=== PATIENT | male | born 1965 | race American Indian/Alaskan Native ===

== ENCOUNTER 2017-01-18 16:34 | Inpatient (IN) | payer MEDICARE ==
[2017-01-18 17:06] LABS: Basophils % (Auto) 0.4 % (0.0-1.8); Eosinophils % (Auto) 2.5 % (0.0-4.3); Hematocrit 33.4 % (35.5-45.6); Hemoglobin 11.3 gm/dl (11.8-15.2); Mean Corpuscular HGB Conc 34 % (32-34); Mean Corpuscular Hemoglobin 30 pg (28-32); Mean Corpuscular Volume 89 fl (84-94); Platelet Count 206 K/mm3 (140-440); Red Blood Count 3.76 M/mm3 (3.65-5.03); White Blood Count 4.3 K/mm3 (4.5-11.0)
[2017-01-18 17:28] LABS: Albumin 4.9 g/dL (3.9-5); Albumin/Globulin Ratio 1.1 %; BUN/Creatinine Ratio 6.8; Bilirubin,Total 0.4 mg/dL (0.1-1.2); Calcium 9.4 mg/dL (8.4-10.2); Potassium 5.6 mmol/L (3.6-5.0); Total Protein 9.2 g/dL (6.3-8.2)
--- NOTE | 2017-01-18 19:06 | Emergency Department Report ---
HPI - General Chief Complaint: Medical Clearance Time Seen by Provider: 01/18/17 18:48 - HPI HPI: Room 32 The patient is a 51-year-old male presenting with chief complaint of missed dialysis. The patient states he was last dialyzed 01/12/2017 and has missed his other appointments secondary to court dates. The patient states he went to his dialysis clinic on 01/20/2017 and was told to come to the hospital. Patient denies any complaints stating that he feels fine. Patient denies shortness of breath or chest pain Location: [see above] Duration: [see above] Quality: Painless Severity: [see above] Modifying factors: [see above] Context: [see above] Mode of transportation: Unknown ED Past Medical Hx - Past Medical History Previous Medical History?: No Hx Renal Disease: Yes (end-stage renal disease) - Surgical History Additional Surgical History: Right chest Vas-Cath - Family History Family history: no significant - Social History Smoking Status: Never Smoker ED Review of Systems ROS: Stated complaint: DIALYSIS EVAL/MISSED DIALYSIS Other details as noted in HPI Comment: All other systems reviewed and negative Constitutional: denies: chills, fever Eyes: denies: eye pain, eye discharge, vision change ENT: denies: ear pain, throat pain Respiratory: denies: cough, shortness of breath, wheezing Cardiovascular: denies: chest pain, palpitations Endocrine: no symptoms reported Gastrointestinal: denies: abdominal pain, nausea, diarrhea Genitourinary: denies: urgency, dysuria Musculoskeletal: denies: back pain, joint swelling, arthralgia Skin: denies: rash, lesions Neurological: denies: headache, weakness, paresthesias Psychiatric: denies: anxiety, depression Hematological/Lymphatic: denies: easy bleeding, easy bruising Physical Exam - Physical Exam Vital Signs: Vital Signs 01/18/17 16:37 Temperature 97.8 F Pulse Rate 69 Respiratory 18 Rate Blood Pressure 201/124 O2 Sat by Pulse 100 Oximetry Physical Exam: GENERAL: The patient is well-developed well-nourished male sitting on stretcher not appearing to be in acute distress. [] HEENT: Normocephalic. Atraumatic. Extraocular motions are intact. Patient has moist mucous membranes. NECK: Supple. Trachea midline CHEST/LUNGS: Clear to auscultation. There is no respiratory distress noted. HEART/CARDIOVASCULAR: Regular. There is no tachycardia. There is no gallop rub or murmur. ABDOMEN: Abdomen is soft, nontender. Patient has normal bowel sounds. There is no abdominal distention. SKIN: There is no rash. There is no edema. There is no diaphoresis. NEURO: The patient is awake, alert, and oriented. The patient is cooperative. The patient has normal speech and gait. MUSCULOSKELETAL:There is no evidence of acute injury. ED Course Vital Signs 01/18/17 16:37 Temperature 97.8 F Pulse Rate 69 Respiratory 18 Rate Blood Pressure 201/124 O2 Sat by Pulse 100 Oximetry - Consultations Consultation #1: 01/18/17 19:[address] Porter- will arrange dialysis ED Medical Decision Making - Lab Data Result diagrams: 01/18/17 16:53 01/18/17 16:53 Laboratory Tests 01/18/17 01/18/17 16:53 16:53 WBC 4.3 L RBC 3.76 Hgb 11.3 L Hct 33.4 L MCV 89 MCH 30 MCHC 34 RDW 16.0 H Plt Count 206 Lymph % (Auto) 31.1 [place] % (Auto) 11.5 H Eos % (Auto) 2.5 Baso % (Auto) 0.4 Lymph # 1.3 [place] # 0.5 Eos # 0.1 Baso # 0.0 Seg Neutrophils % 54.5 Seg Neutrophils # 2.3 Sodium 142 Potassium 5.6 H Chloride 102.0 Carbon Dioxide 23 Anion Gap 23 BUN 66 H Creatinine 9.7 H Estimated GFR 6 BUN/Creatinine Ratio 6.80 Glucose 92 Calcium 9.4 Total Bilirubin 0.40 AST 8 ALT 6 L Alkaline Phosphatase 55 Total Protein 9.2 H Albumin 4.9 Albumin/Globulin Ratio 1.1 - Differential Diagnosis hyperkalemia, end-stage renal disease Critical care attestation.: If time is entered above; I have spent that time in minutes in the direct care of this critically ill patient, excluding procedure time. ED Disposition Clinical Impression: Hyperkalemia, End stage renal disease Disposition: OP ADMIT IP TO THIS HOSP Is pt being admited?: Yes Does the pt Need Aspirin: No Condition: Fair Referrals: PRIMARY CARE, [Primary Care Provider] - 3-5 Days Time of Disposition: 19:12 (hospitalist notified)
[2017-01-18] MEDS ORDERED: D50W (25GM) Syringe IV ONE (19:11)
--- NOTE | 2017-01-18 19:17 | Admit Criteria Form ---
Admission Criteria Documentation: RENAL FAILURE, CHRONIC Clinical Indications for Admission to Inpatient Care (Place 'X' for any and all applicable criteria): Admission is indicated for 1 or more of the following(1)(2)(3)(4)(5)(6)(7)(8) [X ]I. Inpatient admission required[B] rather than observation care (see Renal Failure, Chronic: Observation Care) because of 1 or more of the following: [ ]a. Hemodynamic instability [ ]b) Uremic symptoms (eg, pericarditis, pleural effusion, nausea, vomiting) too severe for, or not responsive (eg, for over 24 hours) to, emergency department or observation care dialysis or treatment regimen [ ]c) Significant respiratory findings (eg, pulmonary edema) that are severe (eg, Hypoxemia) or persist despite observation care treatment (eg, Tachypnea) [ ]d) Clinically significant metabolic abnormality (eg, acidosis) that is severe or persists despite observation care treatment [X ]e) Clinically significant electrolyte abnormality that requires inpatient care (eg, hyperkalemia with severe ECG findings)[C](14)(15) [ ]f) Hypertension requiring inpatient care (eg, SBP > 220 mm Hg or DBP > 120 mm Hg despite observation care treatment) [ ]g) Urgent treatment of renal failure (eg, dialysis) necessary on inpatient basis (eg, not feasible or appropriate in outpatient or observational care setting) as indicated by 1 or more of the followin) Vascular access not previously established or not useable (eg, treatment-resistant blockage) such that new temporary access is needed that is not appropriate for other than short-term inpatient usage (eg, femoral access until other access established or repaired) 2) Patient new to dialysis and timing of subsequent dialysis (eg, beyond that provided in observation care) unclear such that inpatient monitoring is necessary as patient may need repeat dialysis sooner than is routine [ ]h) Continuous intravenous infusion of anticoagulation, platelet inhibitor, vasoactive, or antiarrhythmic medication [ ] i) Pulmonary artery catheter monitoring [ ]j) Temporary pacemaker placement [ ]k) Emergent pericardiocentesis [ ]l) Other condition, treatment, or monitoring requiring inpatient admission [ ]II. Unexplained syncope [A] [ ]III. Recurrent seizures [ ]IV. Severe infections not treatable in outpatient setting (eg, peritonitis)(9 ) [ ]V. Cardiac arrhythmias of immediate concern [ ]. Encephalopathy (eg. altered mental status that is severe or persistent) [ ]VII.Bleeding abnormalities (eg, platelet dysfunction) with active (eg, gastrointestinal) bleeding Extended stay beyond goal length of stay may be needed for (3)(4)(35)(36): [ ]a) Continuing uremic complications [ ]b) Comorbidities or complications The original [facility] [employer] content created by [employer] has been revised. The portions of the content which have been revised are identified through the use of italic text or in bold, and [facility] has neither reviewed nor approved the modified material. All other unmodified content is copyright [facility] [employer]. Please see references footnoted in the original [facility] [employer] edition 2017 Admission Criteria Met: Yes
[2017-01-18] MEDS ORDERED: NACL 0.9% 100 ML IV PRN (19:19)
[2017-01-18] MEDS ORDERED: HEPARIN IV PRN (19:19)
[2017-01-18] MEDS ORDERED: HEPARIN 10,000 UNITS/10 ML IV PRN (19:19)
[2017-01-18] MEDS ORDERED: KIONEX PO ONE (20:00)
[2017-01-18] MEDS ORDERED: SODIUM BICARBONATE IV ONE (20:00)
[2017-01-18] MEDS ORDERED: CALCIUM GLUCONATE 1,000 MG in NACL 0.9% 100 ML IV ONE (20:00)
[2017-01-18] MEDS ORDERED: KIONEX ONE (20:42)
[2017-01-18] MEDS ORDERED: CATAPRES ONE (21:01)
[2017-01-18] MEDS ORDERED: DILAUDID IV PRN (23:17)
[2017-01-18] MEDS ORDERED: PERCOCET 5/325 PO PRN (23:17)
[2017-01-18] MEDS ORDERED: MILK OF MAGNESIA PO PRN (23:17)
[2017-01-18] MEDS ORDERED: ZOFRAN IV PRN (23:17)
[2017-01-18] MEDS ORDERED: DULCOLAX PR PRN (23:17)
[2017-01-18] MEDS ORDERED: TYLENOL PO PRN (23:17)
--- NOTE | 2017-01-18 23:17 | History and Physical Report ---
History of Present Illness Date of examination: 01/18/17 Date of admission: 01/18/17 19:07 Chief complaint: Missed Dialysis SOB History of present illness: HPI The patient is a 51-year-old male presenting with chief complaint of missed dialysis. The patient states he was last dialyzed 01/12/2017 and has missed his other appointments secondary to court dates. The patient states he went to his dialysis clinic on 01/18/2017 and was told to come to the hospital. Patient denies any complaints stating that he feels fine. Patient denies shortness of breath or chest pain Past Medical History Previous Medical History?: No Hx Renal Disease: Yes (end-stage renal disease) Surgical History Additional Surgical History: Right chest Vas-Cath Family History Family history: no significant Social History Smoking Status: Never Smoker Review of Systems ROS: Stated complaint: DIALYSIS EVAL/MISSED DIALYSIS Other details as noted in HPI Comment: All other systems reviewed and negative Constitutional: denies: chills, fever Eyes: denies: eye pain, eye discharge, vision change ENT: denies: ear pain, throat pain Respiratory: denies: cough, shortness of breath, wheezing Cardiovascular: denies: chest pain, palpitations Endocrine: no symptoms reported Gastrointestinal: denies: abdominal pain, nausea, diarrhea Genitourinary: denies: urgency, dysuria Musculoskeletal: denies: back pain, joint swelling, arthralgia Skin: denies: rash, lesions Neurological: denies: headache, weakness, paresthesias Psychiatric: denies: anxiety, depression Hematological/Lymphatic: denies: easy bleeding, easy bruising Medications and Allergies Allergies Allergy/AdvReac Type Severity Reaction Status Date / Time No Known Allergies Allergy Unverified 01/18/17 16:49 Home Medications Medication Instructions Recorded Confirmed Last Taken Type Carvedilol [Coreg] 25 mg PO BID 01/18/17 01/18/17 Unknown History amLODIPine [Norvasc] 10 mg PO QDAY 01/18/17 01/18/17 Unknown History Active Meds: Active Medications Heparin Sodium (Porcine) (Heparin) 5,000 unit IV COOKIE PRN PRN Reason: hemodialysis Heparin Sodium (Porcine) (Heparin 10,000 Units/10 Ml) 2,000 unit IV COOKIE PRN PRN Reason: hemodialysis Sodium Chloride (Nacl 0.9%) 100 mls @ 999 mls/hr IV COOKIE PRN PRN Reason: Hypotension Exam - Constitutional Vitals: Temp Pulse Resp BP Pulse Ox 97.4 F L 70 18 191/112 99 01/18/17 21:29 01/18/17 21:29 01/18/17 21:29 01/18/17 21:29 01/18/17 21:29 General appearance: Present: no acute distress, mild distress, well-nourished - EENT Eyes: Present: PERRL ENT: hearing intact, clear oral mucosa - Neck Neck: Present: supple, normal ROM - Respiratory Respiratory effort: normal Respiratory: bilateral: CTA - Cardiovascular Heart rate: 80 Rhythm: regular Heart Sounds: Present: S1 & S2. Absent: rub, click - Extremities Extremities: no ischemia, pulses intact, pulses symmetrical, No edema Peripheral Pulses: within normal limits - Abdominal General gastrointestinal: Present: soft, non-tender, non-distended, normal bowel sounds Male genitourinary: Present: normal - Rectal Rectal Exam: deferred - Integumentary Integumentary: Present: clear, warm, dry - Musculoskeletal Musculoskeletal: gait normal, strength equal bilaterally - Psychiatric Psychiatric: appropriate mood/affect, intact judgment & insight - Neurologic Neurologic: CNII-XII intact, moves all extremities - Allied Health Allied health notes reviewed: nursing, case management Results - Labs CBC & Chem 7: 01/19/17 02:14 01/19/17 02:14 Labs: Laboratory Last Values WBC 4.3 K/mm3 (4.5-11.0) L 01/18/17 16:53 RBC 3.76 M/mm3 (3.65-5.03) 01/18/17 16:53 Hgb 11.3 gm/dl (11.8-15.2) L 01/18/17 16:53 Hct 33.4 % (35.5-45.6) L 01/18/17 16:53 MCV 89 fl (84-94) 01/18/17 16:53 MCH 30 pg (28-32) 01/18/17 16:53 MCHC 34 % (32-34) 01/18/17 16:53 RDW 16.0 % (13.2-15.2) H 01/18/17 16:53 Plt Count 206 K/mm3 (140-440) 01/18/17 16:53 Lymph % (Auto) 31.1 % (13.4-35.0) 01/18/17 16:53 [place] % (Auto) 11.5 % (0.0-7.3) H 01/18/17 16:53 Eos % (Auto) 2.5 % (0.0-4.3) 01/18/17 16:53 Baso % (Auto) 0.4 % (0.0-1.8) 01/18/17 16:53 Lymph # 1.3 K/mm3 (1.2-5.4) 01/18/17 16:53 [place] # 0.5 K/mm3 (0.0-0.8) 01/18/17 16:53 Eos # 0.1 K/mm3 (0.0-0.4) 01/18/17 16:53 Baso # 0.0 K/mm3 (0.0-0.1) 01/18/17 16:53 Seg Neutrophils % 54.5 % (40.0-70.0) 01/18/17 16:53 Seg Neutrophils # 2.3 K/mm3 (1.8-7.7) 01/18/17 16:53 Sodium 142 mmol/L (137-145) 01/18/17 16:53 Potassium 5.6 mmol/L (3.6-5.0) H 01/18/17 16:53 Chloride 102.0 mmol/L (98-107) 01/18/17 16:53 Carbon Dioxide 23 mmol/L (22-30) 01/18/17 16:53 Anion Gap 23 mmol/L 01/18/17 16:53 BUN 66 mg/dL (9-20) H 01/18/17 16:53 Creatinine 9.7 mg/dL (0.8-1.5) H 01/18/17 16:53 Estimated GFR 6 ml/min 01/18/17 16:53 BUN/Creatinine Ratio 6.80 % 01/18/17 16:53 Glucose 92 mg/dL (75-100) 01/18/17 16:53 Calcium 9.4 mg/dL (8.4-10.2) 01/18/17 16:53 Total Bilirubin 0.40 mg/dL (0.1-1.2) 01/18/17 16:53 AST 8 units/L (5-40) 01/18/17 16:53 ALT 6 units/L (7-56) L 01/18/17 16:53 Alkaline Phosphatase 55 units/L (35-129) 01/18/17 16:53 Total Protein 9.2 g/dL (6.3-8.2) H 01/18/17 16:53 Albumin 4.9 g/dL (3.9-5) 01/18/17 16:53 Albumin/Globulin Ratio 1.1 % 01/18/17 16:53 Short CBC 01/18/17 01/19/17 Range/Units 16:53 02:14 WBC 4.3 L 7.1 (4.5-11.0) K/mm3 Hgb 11.3 L 12.0 (11.8-15.2) gm/dl Hct 33.4 L 36.2 (35.5-45.6) % Plt Count 206 204 (140-440) K/mm3 BMP 01/18/17 01/19/17 16:53 02:14 Sodium 142 142 Potassium 5.6 H 4.2 D Chloride 102.0 99.3 Carbon Dioxide 23 18 L BUN 66 H 67 H Creatinine 9.7 H 9.0 H Glucose 92 98 Calcium 9.4 9.2 Liver Function 01/18/17 01/19/17 Range/Units 16:53 02:14 Total Bilirubin 0.40 0.40 (0.1-1.2) mg/dL AST 8 10 (5-40) units/L ALT 6 L 9 (7-56) units/L Alkaline Phosphatase 55 58 (35-129) units/L Albumin 4.9 4.8 (3.9-5) g/dL - Imaging and Cardiology EKG: report reviewed (NSR) Assessment and Plan Advance Directives: Yes VTE prophylaxis?: Chemical, Not ordered (Full code) Plan of care discussed with patient/family: Yes - Patient Problems (1) Hyperkalemia Current Visit: Yes Status: Acute Plan to address problem: Was given Insulin/D50w Calcium chloride and Na Hco3 in ED Also due for HD Cause missed HD (2) End stage renal disease Current Visit: Yes Status: Chronic Plan to address problem: Cont HD (3) Volume overload Current Visit: Yes Status: Acute Qualifiers: Hypervolemia type: H Plan to address problem: Sec to missed HD (4) HTN (hypertension) Current Visit: Yes Status: Chronic Qualifiers: Hypertension type: essential hypertension Qualified Code(s): I10 - Essential (primary) hypertension Plan to address problem: Cont Catapress (5) DVT prophylaxis Current Visit: Yes Status: Acute Plan to address problem: on Heparin
[2017-01-18] MEDS ORDERED: CATAPRES-TTS PATCH TD SCH (23:51)
[2017-01-19] MEDS: APRESOLINE IV PRN ×2 (00:14→12:36)
[2017-01-19 02:33] LABS: Basophils % (Auto) 0.9 % (0.0-1.8); Eosinophils % (Auto) 1.3 % (0.0-4.3); Hematocrit 36.2 % (35.5-45.6); Mean Corpuscular HGB Conc 33 % (32-34); Mean Corpuscular Hemoglobin 30 pg (28-32); Mean Corpuscular Volume 89 fl (84-94); Platelet Count 204 K/mm3 (140-440); Red Blood Count 4.07 M/mm3 (3.65-5.03); Red Cell Distribution Width 16.3 % (13.2-15.2); White Blood Count 7.1 K/mm3 (4.5-11.0)
[2017-01-19 02:45] LABS: Albumin 4.8 g/dL (3.9-5); Albumin/Globulin Ratio 1.2 %; BUN/Creatinine Ratio 7.44; Bilirubin,Total 0.4 mg/dL (0.1-1.2); Calcium 9.2 mg/dL (8.4-10.2); Chloride 99.3 mmol/L (98-107); Potassium 4.2 mmol/L (3.6-5.0); Total Protein 8.7 g/dL (6.3-8.2)
--- NOTE | 2017-01-19 10:24 | Consultation ---
History of Present Illness - Reason for Consult Consult date: 01/19/17 Dialysis access - History of Present Illness Patient with a history of end-stage renal disease on hemodialysis through a right chest wall tunneled hemodialysis catheter. Patient evaluated during hemodialysis. His catheter appears to be functioning normally. Discussion with the patient regarding long-term dialysis access. Patient has an outpatient vascular surgery that he sees in [place] and is scheduled for fistula creation on the of this month. Past History Past Medical History: dialysis, ESRD Past Surgical History: Other (right chest wall tunneled hemodialysis catheter) Social history: no significant social history Family history: no significant family history Medications and Allergies Allergies Allergy/AdvReac Type Severity Reaction Status Date / Time No Known Allergies Allergy Unverified 01/18/17 16:49 Home Medications Medication Instructions Recorded Confirmed Last Taken Type Carvedilol [Coreg] 25 mg PO BID 01/18/17 01/18/17 Unknown History amLODIPine [Norvasc] 10 mg PO QDAY 01/18/17 01/18/17 Unknown History Active Meds: Active Medications Acetaminophen (Tylenol) 650 mg PO Q4H PRN PRN Reason: Pain MILD(1-3)/Fever >100.5/[place] Amlodipine Besylate (Norvasc) 10 mg PO QDAY JUANY Bisacodyl (Dulcolax) 10 mg [place] QDAY PRN PRN Reason: Constipation unrelieved by MOM Carvedilol (Coreg) 25 mg PO BID [facility] Clonidine HCl (Catapres-Tts Patch) 0.2 mg TD Th JUANY Last Admin: 01/19/17 00:44 Dose: 0.2 mg Heparin Sodium (Porcine) (Heparin) 5,000 unit IV COOKIE PRN PRN Reason: hemodialysis Heparin Sodium (Porcine) (Heparin 10,000 Units/10 Ml) 2,000 unit IV COOKIE PRN PRN Reason: hemodialysis Hydralazine HCl (Apresoline) 10 mg IV Q6HR PRN PRN Reason: Hypertension Last Admin: 01/19/17 00:14 Dose: 10 mg Hydromorphone HCl (Dilaudid) 0.5 mg IV Q3H PRN PRN Reason: Pain , Severe (7-10) Sodium Chloride (Nacl 0.9%) 100 mls @ 999 mls/hr IV COOKIE PRN PRN Reason: Hypotension Magnesium Hydroxide (Milk Of Magnesia) 30 ml PO Q4H PRN PRN Reason: Constipation Ondansetron HCl (Zofran) 4 mg IV Q8H PRN PRN Reason: N/V unrelieved by Reglan Oxycodone/Acetaminophen (Percocet 5/325) 1 tab PO Q6H PRN PRN Reason: Pain, Moderate (4-6) Review of Systems All systems: negative Exam - Constitutional Vitals: Temp Pulse Resp BP Pulse Ox 98.7 F 78 20 165/97 100 01/19/17 08:59 01/19/17 08:59 01/19/17 06:38 01/19/17 08:59 01/19/17 08:59 General appearance: Present: no acute distress - EENT Eyes: Present: PERRL, EOM intact ENT: hearing intact - Neck Neck: Present: supple, normal ROM - Respiratory Respiratory effort: normal - Cardiovascular Rhythm: regular - Extremities Extremities: Full ROM - Abdominal General gastrointestinal: Present: deferred Male genitourinary: Present: deferred - Rectal Rectal Exam: deferred - Integumentary Integumentary: Present: clear - Psychiatric Psychiatric: appropriate mood/affect, cooperative Results - Labs CBC & Chem 7: 01/19/17 02:14 01/19/17 02:14 Labs: Abnormal lab results 01/19/17 01/19/17 Range/Units 02:14 02:14 RDW 16.3 H (13.2-15.2) % Lymph # 1.1 L (1.2-5.4) K/mm3 Seg Neutrophils % 75.6 H (40.0-70.0) % Carbon Dioxide 18 L (22-30) mmol/L BUN 67 H (9-20) mg/dL Creatinine 9.0 H (0.8-1.5) mg/dL Total Protein 8.7 H (6.3-8.2) g/dL Assessment and Plan Patient has artery been scheduled for fistula creation at [place] on January 30. We'll defer to his outpatient vascular surgeons.
[2017-01-19] MEDS ORDERED: NACL 0.9 (PRIMING MACHINE ONLY DIALYSIS) MC ONE (10:58)
[2017-01-19] MEDS ORDERED: COREG PO SCH (11:00)
[2017-01-19] MEDS ORDERED: NORVASC PO SCH (11:00)
--- NOTE | 2017-01-19 13:41 | Consultation ---
History of Present Illness - Reason for Consult Consult date: 01/19/17 end stage renal disease Requesting physician: GUZMAN SOLIS - History of Present Illness This is a 51yo AAM with h/o hypertension, ESRD on HD on MWF at [facility], who presented to [facility] ER after missed [address]. Pt was last dialyzed on 01/12/2017 and was sent to ER from outpatient HD center for further evaluation. Labs showed mild hyperkalemia of 5.6 along with metabolic acidosis. Patient otherwise denied fever, chills, nausea, vomiting, shortness of breath, chest pain, palpitations, abd pain, diarrhea, constipation. Pt was admitted for HD treatments Past History Past Medical History: dialysis, ESRD Past Surgical History: Other (right chest wall tunneled hemodialysis catheter) Social history: no significant social history Family history: no significant family history Medications and Allergies Allergies Allergy/AdvReac Type Severity Reaction Status Date / Time No Known Allergies Allergy Unverified 01/18/17 16:49 Home Medications Medication Instructions Recorded Confirmed Last Taken Type Carvedilol [Coreg] 25 mg PO BID 01/18/17 01/18/17 Unknown History amLODIPine [Norvasc] 10 mg PO QDAY 01/18/17 01/18/17 Unknown History Active Meds: Active Medications Acetaminophen (Tylenol) 650 mg PO Q4H PRN PRN Reason: Pain MILD(1-3)/Fever >100.5/[place] Amlodipine Besylate (Norvasc) 10 mg PO QDAY JUANY Bisacodyl (Dulcolax) 10 mg [place] QDAY PRN PRN Reason: Constipation unrelieved by MOM Carvedilol (Coreg) 25 mg PO BID JUANY Clonidine HCl (Catapres-Tts Patch) 0.2 mg TD Th JUANY Last Admin: 01/19/17 00:44 Dose: 0.2 mg Heparin Sodium (Porcine) (Heparin) 5,000 unit IV COOKIE PRN PRN Reason: hemodialysis Heparin Sodium (Porcine) (Heparin 10,000 Units/10 Ml) 2,000 unit IV COOKIE PRN PRN Reason: hemodialysis Last Admin: 01/19/17 10:57 Dose: 2,000 unit Hydralazine HCl (Apresoline) 10 mg IV Q6HR PRN PRN Reason: Hypertension Last Admin: 01/19/17 12:36 Dose: 10 mg Hydromorphone HCl (Dilaudid) 0.5 mg IV Q3H PRN PRN Reason: Pain , Severe (7-10) Sodium Chloride (Nacl 0.9%) 100 mls @ 999 mls/hr IV COOKIE PRN PRN Reason: Hypotension Magnesium Hydroxide (Milk Of Magnesia) 30 ml PO Q4H PRN PRN Reason: Constipation Ondansetron HCl (Zofran) 4 mg IV Q8H PRN PRN Reason: N/V unrelieved by Reglan Oxycodone/Acetaminophen (Percocet 5/325) 1 tab PO Q6H PRN PRN Reason: Pain, Moderate (4-6) Review of Systems All systems: negative Exam - Vital Signs Vital signs: Vital Signs Temp Pulse Resp BP Pulse Ox 97.8 F 69 18 201/124 100 01/18/17 16:37 01/18/17 16:37 01/18/17 16:37 01/18/17 16:37 01/18/17 16:37 - General Appearance General appearance: well-developed, well-nourished, appears stated age EENT: ATNC, PERRL, mucous membranes moist Neck: Present: neck supple Respiratory: Clear to Ascultation Heart: regular, S1S2 Gastrointestinal: Present: normoactive bowel sounds Integumentary: no rash, other (noedema ) Neurologic: no focal deficit, alert and oriented x3, strength 5/5, CN 3-12 intact Psychiatric: mood/affect appropriate, cooperative Results - Lab Results 01/19/17 02:14 01/19/17 02:14 Most recent lab results Calcium 9.2 mg/dL (8.4-10.2) 01/19/17 02:14 Assessment and Plan - Patient Problems (1) End stage renal disease Current Visit: Yes Status: Chronic Plan to address problem: Arranged HD today, to continue on MWF schedule. stable for discharge after HD today, to resume outpatient HD at [facility] (2) Hyperkalemia Current Visit: Yes Status: Acute Plan to address problem: 2k bath with HD. cont 2g K renal diet (3) HTN (hypertension) Current Visit: Yes Status: Chronic Qualifiers: Hypertension type: essential hypertension Qualified Code(s): I10 - Essential (primary) hypertension Plan to address problem: BP remains uncontrolled. will target UF 3-4kg as tolerated for further volume/ BP control. resume home BP meds incl. amlodipine, carvedilol. Clonidine patch 0.2mg was added. will monitor BP on current regimen
--- NOTE | 2017-01-19 13:54 | Discharge Summary ---
Providers - Providers Date of Admission: 01/18/17 19:07 Date of discharge: 01/19/17 Attending physician: ALANNAH QUISPE 01/18/17 Consult to Case Management [CONS] Routine Services Needed at Discharge: [employer] Notified:: case therapist 01/18/17 23:20 Consult to Physician [CONS] Routine Consulting Provider: RD RIZVI Reason For Exam: AV graft eval Place consult to:: vascular Notified:: office Phone number called:: [phone] Was contact made?: Yes If yes, spoke with:: jimmy Time called:: 10:01 Primary care physician: MADHURI PATE MD Hospitalization Condition: Fair Disposition: - TO HOME OR SELFCARE - Discharge Diagnoses (1) Hyperkalemia Status: Acute (2) Volume overload Status: Acute Qualifiers: Hypervolemia type: H (3) End stage renal disease Status: Chronic (4) HTN (hypertension) Status: Chronic Qualifiers: Hypertension type: essential hypertension Qualified Code(s): I10 - Essential (primary) hypertension Exam - Constitutional Vitals: Temp Pulse Resp BP Pulse Ox 98.5 F 79 18 169/104 100 01/19/17 10:00 01/19/17 13:00 01/19/17 10:00 01/19/17 13:00 01/19/17 08:59 Plan Activity: no restrictions Diet: low fat, low cholesterol, low salt, renal Additional Instructions: 1.Follow up with PCP or [facility] in 1 week. 2.Continue routine hemodialysis Follow up with: PRIMARY CAREMD [Primary Care Provider] - 3-5 Days
[2017-01-19 17:36] VITALS: BP 170/107
== END 2017-01-19 19:28 | disposition home or self-care (01) | DRG 682 ==
LOC: ED 16:34 → 4A 19:07
PROVIDERS: ADMIT Internal Medicine; ATTEND Internal Medicine
PROC: 5A1D00Z (ICD-10-PCS; principal; 2017-01-19)
DX: I12.0 Hypertensive chronic kidney disease with stage 5 chronic kidney disease or end stage renal disease (principal); N18.6 End stage renal disease; E87.70 Fluid overload, unspecified; E87.5 Hyperkalemia; Z79.899 Other long term (current) drug therapy
CPT/HCPCS: 36415; 80053; 83036; 85025; 96374; J0360; J0610; J1644; J1815; J7030

== ENCOUNTER 2017-01-31 08:17 | Day surgery (SDC) | payer MEDICARE ==
[~2017-01-31 08:17] MED LIST: ANCEF/STERILE WATER 2 GM/20 ML 2 GM/20 ML SYRINGE IV NR; NACL 0.9% 1000 ML 1,000 ML IV SCH
[2017-01-31 09:07] LABS: Basophils % (Auto) 1.5 % (0.0-1.8); Eosinophils % (Auto) 3.8 % (0.0-4.3); Hematocrit 32.2 % (35.5-45.6); Hemoglobin 10.5 gm/dl (11.8-15.2); Mean Corpuscular HGB Conc 33 % (32-34); Mean Corpuscular Hemoglobin 29 pg (28-32); Mean Corpuscular Volume 88 fl (84-94); Platelet Count 147 K/mm3 (140-440); Red Blood Count 3.65 M/mm3 (3.65-5.03); Red Cell Distribution Width 15.9 % (13.2-15.2); White Blood Count 4.7 K/mm3 (4.5-11.0)
[2017-01-31 09:27] LABS: BUN/Creatinine Ratio 4.54; Calcium 9.1 mg/dL (8.4-10.2); Chloride 97.2 mmol/L (98-107); Potassium 4.1 mmol/L (3.6-5.0)
--- NOTE | 2017-01-31 10:17 | Anesthesia Day of Surgery ---
Anesthesia Day of Surgery - Day of Surgery Patient Examined: Yes Patient H&P Reviewed: Yes Patient is NPO: Yes Beta Blockers: Yes
[2017-01-31] MEDS ORDERED: VERSED IV NR (10:19)
[2017-01-31] MEDS ORDERED: PEPCID IV NR (10:19)
--- NOTE | 2017-01-31 10:19 | Anesthesia Consultation ---
Anesthesia Consult and Med Hx Date of service: 01/31/17 - Airway Anesthetic Teeth Evaluation: Good ROM Head & Neck: Adequate Mental/Hyoid Distance: Adequate Mallampati Class: Class II Intubation Access Assessment: Probably Good - Pulmonary Exam CTA: Yes - Cardiac Exam Cardiac Exam: RRR - Pre-Operative Health Status ASA Pre-Surgery Classification: ASA3 Proposed Anesthetic Plan: General - Pulmonary Hx Asthma: No Hx Pneumonia: No - Cardiovascular System Hx Hypertension: Yes (since 2007) - Central Nervous System Hx Psychiatric Problems: No - Endocrine Hx Renal Disease: Yes (end-stage renal disease, last dialysed Tu) Hx End Stage Renal Disease: Yes - Other Systems Hx Cancer: No
[2017-01-31] MEDS ORDERED: SUBLIMAZE ONE (11:51)
[2017-01-31] MEDS ORDERED: XYLOCAINE MPF 2% ONE (11:51)
[2017-01-31] MEDS ORDERED: DIPRIVAN 10 MG/ML IV ONE (11:51)
[2017-01-31] MEDS ORDERED: PROTAMINE SULFATE ONE (12:01)
[2017-01-31] MEDS ORDERED: NACL ONE (12:02)
[2017-01-31] MEDS ORDERED: XYLOCAINE 1% MPF 5 mL ONE (12:02)
[2017-01-31] MEDS ORDERED: HEPARIN 10,000 UNITS/10 ML ONE (12:02)
[2017-01-31] MEDS ORDERED: NACL 0.9% 250ML 500 ML ONE (12:03)
[2017-01-31] MEDS ORDERED: SODIUM BICARBONATE ONE (12:03)
[2017-01-31] MEDS ORDERED: GELFOAM TP ONE (12:03)
[2017-01-31] MEDS ORDERED: XYLOCAINE 1%/ EPI 1:100,000 INFILTRATI ONE (12:03)
[2017-01-31] MEDS ORDERED: NITROGLYCERIN SYRINGE 3 ML ONE (12:04)
[2017-01-31] MEDS ORDERED: MARCAINE 0.5% 30 ML INFILTRATI ONE (12:05)
[2017-01-31] MEDS ORDERED: ZOFRAN ONE (12:37)
[2017-01-31] MEDS ORDERED: MARCAINE 0.5% INFILTRATI ONE (12:54)
[2017-01-31] MEDS ORDERED: NACL 0.9% IR ONE (12:54)
[2017-01-31] MEDS ORDERED: HEPARIN 10,000 UNITS/10 ML 1,000 UNIT in NACL 0.9% 250ML 250 ML IR ONE (12:55)
--- NOTE | 2017-01-31 14:00 | Short Stay Summary ---
Short Stay Documentation Date of service: 01/31/17 Narrative H&P: See H&P - History H&P: obtained from office - Allergies and Medications Current Medications: Allergies No Known Allergies Allergy (Unverified 01/30/17 07:58) Home Medications Medication Instructions Recorded Confirmed Last Taken Type Carvedilol [Coreg] 25 mg PO BID 01/18/17 01/31/17 01/31/17 07:15 History amLODIPine [Norvasc] 10 mg PO QDAY 01/18/17 01/31/17 01/31/17 07:15 History Active Medications Cefazolin Sodium (Ancef/Sterile Water 2 Gm/20 Ml) 2 gm in 20 mls @ 80 mls/hr IV PREOP NR PRN Reason: Protocol Stop: 01/31/17 23:59 Sodium Chloride (Nacl 0.9% 1000 Ml) 1,000 mls @ 42 mls/hr IV DIRECT JUANY Last Admin: 01/31/17 09:15 Dose: 42 mls/hr Midazolam HCl (Versed) 2 mg IV PREOP NR Stop: 01/31/17 23:59 Last Admin: 01/31/17 10:32 Dose: 2 mg - Brief post op/procedure progress note Date of procedure: 01/31/17 Pre-op diagnosis: ESRD Post-op diagnosis: same Procedure: Creation of Left Demetris Fistula Anesthesia: GETA Surgeon: AAKASH BAKER Estimated blood loss: minimal Pathology: none Condition: stable - Disposition Condition at discharge: Good Disposition: DC-01 TO HOME OR SELFCARE Short Stay Discharge Plan Activity: other (no heavy lifting with left arm) Wound: open to air, keep clean and dry, other (okay to wash the wound with soap and water but do not soak in water) Follow up with: AAKASH BAKER MD [Staff Physician] - 14 Days Prescriptions: HYDROcodone/APAP 7.5-325 [Sedan 7.5/325] 1 each PO Q6HR PRN #40 tablet PRN Reason: Pain
--- NOTE | 2017-01-31 14:01 | Operative Report ---
Operative Report Operative Report: Date of procedure: 01/31/2017 Pre-operative diagnosis: End-Stage Renal Disease Post-operative diagnosis: End-Stage Renal Disease Procedure(s): Creation of Left Demetris Fistula Surgeon: Kasi Chandra MD Sugar Coating Hand: None Anesthesia: General Endotracheal Anesthesia EBL: Minimal Counts: Correct Complications: None Condition: Stable Findings: Successful creation of left arm AV fistula Specimen: None Indication: The patient is a 51-year-old male with history of end-stage renal disease currently on hemodialysis through a permacath. He is in need of long-term access and had suitable vein for creation of an AV fistula. He was given the risks, benefits, and alternative procedures and consented to procedure. Description of Procedure: The patient was brought to the operating room and laid in supine position after general endotracheal anesthesia was achieved his left arm was prepped and draped in normal sterile fashion. Longitudinal incision was then created on the distal wrist centered over the cephalic vein and a second incision was created in longitudinal fashion over the radial artery. The radial artery was dissected out circumferentially and controlled with vessel loops. The cephalic vein was then dissected out circumferentially, ligating side branches and dividing them, and then a tunnel was created to transpose it over to the radial artery. A 3 Roque was then advanced through the cephalic vein proximally to ensure patency. The vein was then flushed with heparinized saline and control of the bulldog clamp. The radial artery vessel loops were put on tension occluding flow, and then an 11 blade and Skinner scissors used to create an arteriotomy. An end-to-side anastomosis created between the cephalic vein and the radial artery using a single 6-0 Prolene in running fashion. Prior to completing the anastomosis I flushed the artery both retrograde and antegrade and advanced a 3 Roque into the proximal portion of the artery to break the spasm. I then completed the anastomosis and removed all clamps allowing flow into the fistula which had an excellent thrill. The necessity wound using half percent Marcaine plain. Then closed the wounds in 2 layers using a 3-0 Vicryl running fashion the deep dermal layer, 4-0 Monocryl in a running fashion the subcuticular layer, and Surgicel as a dressing. The patient tolerated the procedure well, all sponge needle asthma counts correct, the patient was taken to recovery in stable condition.
[2017-01-31] MEDS ORDERED: NORCO 7.5/325 ONE (14:56)
--- NOTE | 2017-01-31 14:56 | Post Anesthesia Evaluation ---
- Post Anesthesia Evaluation Patient Participated: Yes Airway Patent: Yes Stable Respiratory Function: Yes Nausea/Vomiting: No Temp > 96.8F: Yes Pain Manageable: Yes Adequeate Hydration: Yes Anesthesia Complications: No
[2017-01-31] MEDS ORDERED: NORCO 7.5/325 PO PRN (14:57)
[2017-01-31 18:33] VITALS: BP 176/93
== END 2017-01-31 17:05 | disposition home or self-care (01) ==
LOC: OR 08:17
PROVIDERS: ATTEND Surgery Vascular Surgery
DX: I12.0 Hypertensive chronic kidney disease with stage 5 chronic kidney disease or end stage renal disease (principal); N18.6 End stage renal disease; Z99.2 Dependence on renal dialysis
CPT/HCPCS: 36415; 36821; 80048; 85025; A4649; C1757; J0690; J1644; J2250; J2405; J2704; J3010; J7030; J7050; J2720